=== PATIENT | female | born 1970 | race Caucasian/White ===

== ENCOUNTER 2016-12-28 17:14 | Observation (INO) | payer OTHER ==
[~2016-12-28] VITALS: Ht 172.7 cm; Wt 63.8 kg
[2016-12-28] MEDS ORDERED: SODIUM CHLORIDE 0.9% 1000ML 1,000 ML IV STA (17:19)
--- NOTE | 2016-12-28 17:34 | EMERGENCY ROOM VISIT NOTE ---
History Report prepared by Staci: Dio Sanabria Under the Supervision of: Dr. Tavon Flowers M.D. First contact with patient: 17:19 Chief Complaint: OVERDOSE (INTENTIONAL) Stated Complaint: SLEEPING,GROGGY History of Present Illness The patient is a 46 year old female who presents to the Emergency Room with complaints of an intentional overdose that occurred prior to arrival. The patient's family think she overdosed on 16 and a 1/2, 400 mg Seroquel, and 30, 100 mg Seroquel. Currently, the patient is sleepy and groggy. Per the patient's family, the patient was coming from [place] to the [facility] to get admitted. The patient started acting crazy while in the car. They then were at a gas station, and the patient passed out and fell onto the ground. She has a resulting left knee abrasion from the fall. She was then brought here via ambulance. The patient's family states that the patient regularly takes 2 Seroquel to fall asleep at night, and would take another one if she can't fall asleep. The patient has been noted to think that somebody is coming after her. She would make stories up out of letters and rearrange the syllables to make up morbid stories about somebody trying to kill her. Source of History: family Onset: Prior to arrival Position: other (global-intentional) Symptom Intensity: 16.5 400 mg Seroquel, 30 100 mg Seroquel Associated Symptoms: + LOC Note: Associated symptoms: Sleepy and groggy. Acting crazy in car. Fell and has abrasion on left knee. Review of Systems See HPI for pertinent positives & negatives. A total of 10 systems reviewed and were otherwise negative. Past Medical & Surgical Medical Problems: (1) Medical history unknown (2) Pulmonary embolism Family History Unobtainable Social History Smoking Status: Current Every Day Smoker Alcohol Use: none, other (recovered alcoholic-no drinks in 5 years) Marital Status: in relationship Housing Status: lives with significant other Current/Historical Medications Scheduled Cyanocobalamin (Vitamin B-12), 1,000 MCG PO DAILY Fluoxetine Hcl (Prozac), 60 MG PO DAILY Fluticasone Furoate-Vilanterol (Breo Ellipta), 1 PUFFS PO DAILY Lorazepam (Ativan), 0.5 MG PO Q8 Pantoprazole (Protonix), 40 MG PO DAILY Quetiapine Fumarate (Seroquel), 400 MG PO HS Rivaroxaban (Xarelto), 20 MG PO DAILY Scheduled PRN Albuterol Hfa (Ventolin Hfa), 2 PUFFS INH Q6H PRN for PRN Trazodone Hcl (Trazodone), 50 MG PO HS PRN for Sleep Allergies Coded Allergies: Methylphenidate (Unverified Allergy, Unknown, RASH, SHOCK, 12/28/16) Metoclopramide (Unverified Allergy, Unknown, RASH, SHOCK, 12/28/16) Morphine (Unverified Allergy, Unknown, RASH, SHOCK, 12/28/16) Physical Exam Vital Signs Date Time Temp Pulse Resp B/P Pulse Ox O2 Delivery O2 Flow Rate FiO2 12/28/16 19:35 93 98 12/28/16 19:30 129/85 12/28/16 19:14 92 16 100 Room Air 12/28/16 19:00 127/87 12/28/16 18:44 91 97 12/28/16 18:39 92 96 12/28/16 18:38 107/73 12/28/16 18:34 96 96 12/28/16 18:29 98 99 12/28/16 18:24 95 96 12/28/16 18:19 94 97 12/28/16 18:14 94 98 12/28/16 18:09 94 98 12/28/16 18:04 96 98 12/28/16 18:02 132/90 12/28/16 17:48 105/77 12/28/16 17:44 91 97 12/28/16 17:41 97 Room Air 12/28/16 17:39 95 98 12/28/16 17:34 36.4 94 18 101/66 95 Room Air 12/28/16 17:34 92 96 12/28/16 17:33 101/66 12/28/16 17:29 94 95 12/28/16 17:24 93 96 12/28/16 17:20 95 12/28/16 17:19 94 95 Physical Exam GENERAL: Patient is a 46 year old female who is sonorous on exam HEAD: Normocephalic atraumatic EYES: Ocular movements intact pupils equal and react to light OROPHARYNX mucous membranes are moist no exudates present no erythema or edema present NECK: Supple no nuchal rigidity CHEST: Good equal expansion LUNGS: Clear and equal to auscultation CARDIAC: Normal S1 and S2 ABDOMEN: Soft nontender no guarding BACK: No CVA tenderness EXTREMITIES: No pain upon palpation normal muscle strength in all groups no clubbing cyanosis or edema NEURO: Patient is following commands is answering questions appropriately. Alert and oriented x3 Cranial Nerves 2-12 grossly intact Medical Decision & Procedures ER Provider Diagnostic Interpretation: Radiology results as stated below per my review and radiologist interpretation: CT HEAD WITHOUT CONTRAST (CT) CLINICAL HISTORY: Acute change in mental status COMPARISON STUDY: No previous studies for comparison. TECHNIQUE: Axial CT of the brain is performed from the vertex to the skull base. IV contrast was not administered for this examination. CT DOSE: 601.98 mGy.cm FINDINGS: No intra or extra-axial mass lesions are visualized. There is no CT evidence of acute cortical infarction. There is no evidence of midline shift. There is no acute hemorrhage. No calvarial fractures are visualized. There is minimal disconjugate ocular gaze There is no evidence of pathologic ventricular dilatation. There is no evidence of acute sinusitis IMPRESSION: No acute intracranial findings Electronically signed by: Elio Noble M.D. 12/28/2016 5:59 PM Dictated Date/Time: 12/28/2016 5:58 PM CHEST ONE VIEW PORTABLE CLINICAL HISTORY: Acute change in mental status COMPARISON STUDY: No previous studies for comparison. FINDINGS: The cardiac and mediastinal contours are normal. There is no evidence of focal pulmonary consolidation. There is no evidence of failure. No pleural effusions are visualized.[ IMPRESSION: No active disease in the chest. Electronically signed by: Elio Noble M.D. 12/28/2016 6:36 PM Dictated Date/Time: 12/28/2016 6:35 PM Laboratory Results Test 12/28/16 17:15 12/28/16 17:34 12/28/16 17:40 12/28/16 19:07 Prothrombin Time 10.2 SECONDS (9.0-12.0) Prothromb Time International Ratio 1.0 (0.9-1.1) Activated Partial Thromboplast Time 24.3 SECONDS (21.0-31.0) Partial Thromboplastin Ratio 0.9 Total Bilirubin 0.9 mg/dl (0.2-1) Direct Bilirubin mg/dl (0-0.2) Alanine Aminotransferase (ALT/SGPT) 13 U/L (12-78) Alkaline Phosphatase 84 U/L (45-117) Total Protein 6.9 gm/dl (6.4-8.2) Albumin 3.7 gm/dl (3.4-5.0) Lipase 88 U/L (73-393) Chemistry Specimen Hemolysis Salicylates Level 4.7 mg/dl (2.8-20) Acetaminophen Level < 2 ug/ml (10-30) Ethyl Alcohol mg/dL < 3.0 mg/dl (0-3) Bedside Glucose 113 mg/dl (70-90) Urine Color DK YELLOW Urine Appearance CLOUDY (CLEAR) Urine pH 6.0 (4.5-7.5) Urine Specific [place] 1.038 (1.000-1.030) Urine Protein 2+ (NEG) Urine Glucose (UA) NEG (NEG) Urine Ketones TRACE (NEG) Urine Occult Blood TRACE (NEG) Urine Nitrite POS (NEG) Urine Bilirubin NEG (NEG) Urine Urobilinogen NEG (NEG) Urine Leukocyte Esterase TRACE (NEG) Urine WBC (Auto) 1-5 /hpf (0-5) Urine RBC (Auto) 5-10 /hpf (0-4) Urine Hyaline Casts (Auto) 10-30 /lpf (0-5) Urine Epithelial Cells (Auto) >30 /lpf (0-5) Urine Bacteria (Auto) 4+ (NEG) Urine Renal Epithelial Cells /lpf (0-5) Urine Crystals CALCIUM OXALATE (NONE Urine Opiates Screen NEG (NEG) Urine Methadone, Qualitative NEG (NEG) Urine Barbiturates NEG (NEG) Urine Phencyclidine (PCP) Level NEG (NEG) Ur Amphetamine/Methamphetamine POS (NEG) MDMA (Ecstasy) Screen NEG (NEG) Urine Benzodiazepines Screen POS (NEG) Urine Cocaine Metabolite NEG (NEG) Urine Marijuana (THC) NEG (NEG) Magnesium Level 1.9 mg/dl (1.8-2.4) Aspartate Amino Transf (AST/SGOT) 7 U/L (15-37) Total Creatine Kinase 38 U/L (26-192) Labs reviewed by ED physician. Medications Administered Medications (Trade) Dose Ordered Sig/Jessica Route Start Time Stop Time Status Last Admin Dose Admin Sodium Chloride (Nss 1000ml) 1,000 ml @ 999 mls/hr Q1H1M STAT IV 5/5/17 17:19 12/28/16 18:19 DC 12/28/16 17:30 999 MLS/HR Naloxone HCl (Narcan Inj) 0.2 mg NOW STAT IV 12/28/16 17:20 12/28/16 17:21 DC 12/28/16 18:16 0.2 MG Ceftriaxone Sodium (Rocephin Inj) 1 gm NOW STAT IV 12/28/16 18:18 12/28/16 18:19 DC 12/28/16 18:21 1 GM Magnesium Sulfate (Magnesium Sulfate) 1 gm NOW STAT IV 12/28/16 19:27 12/28/16 19:28 DC 12/28/16 19:40 1 GM ECG Indication: other (overdose) Rate (beats per minute): 94 Rhythm: normal sinus Findings: no acute ischemic change, prolonged QT, no ectopy Change: Second ECG: normal sinus rhythm with a rate of 90 bpm. Prolonged QT. QTC is 44. ED Course 1714: Past medical records reviewed. The patient was evaluated in room A1. A complete history and physical examination was performed. 171: Ordered NSS 1000 ml @ 999 mls/hr IV. 0: Ordered Narcan Inj 0.2 mg IV. 0: I reevaluated the patient and Narcan was given to the patient with no response. 1817: Ordered Rocephin Inj 1 gm IV. 1907: I discussed the patient with Dr. Cole - Isaura student development advisor - he will evaluate the patient for further treatment. 1911: I reevaluated the patient and she is resting comfortably. The patient's family verbally expressed understanding and agreement of the treatment plan. The patient will be evaluated for further treatment. Medical Decision Differential diagnosis: Etiologies such as metabolic, infection, hypoglycemia, electrolyte abnormalities , cardiac sources, intracerebral event, toxicologic, neurologic, as well as others were entertained. This is a 46 rolled female who presents emergency department complaining of altered mental status. The patient's family is concerned that she took an overdose of her Seroquel. Upon arrival to the emergency department the patient is somnolent however she is managing her airway. She wakes with painful stimuli however falls immediately back to sleep. Family is unsure if the patient also took a large amount of Ativan as well. I did discuss the case with poison control. I also discussed the case with the [facility] service who agreed to admit the patient. Patient family were in agreement with the treatment plan. Consults Time Called: 1901 Consulting Physician: Dr. Douglas Delarosa student development advisor Returned Call: 1907 I discussed the patient with Dr. Douglas Delarosa student development advisor - he will evaluate the patient for further treatment. Impression Primary Impression: Polysubstance overdose Scribe Attestation The scribe's documentation has been prepared under my direction and personally reviewed by me in its entirety. I confirm that the note above accurately reflects all work, treatment, procedures, and medical decision making performed by me. Departure Information Dispostion Being Evaluated By Hospitalist Referrals No Doctor, Assigned (PCP) Patient Instructions My [facility]
[2016-12-28 17:44] LABS: BASO % 0.2 %; BASO ABS # 0.02 K/uL (0-0.2); COMPLETE YES; EOS % 1.3 %; HEMATOCRIT 41.9 % (37-47); IG% 0.2 %; LYMPH % 26.9 %; LYMPH ABS # 2.83 K/uL (1.2-3.4); MEAN CELL VOLUME 89.5 fL (80-100); MEAN CORPUSCULAR HEMOGLOBIN 30.8 pg (25-34); MEAN CORPUSCULAR HGB CONC 34.4 g/dl (32-36); MEAN PLATELET VOLUME 8.8 fL (7.4-10.4); NEUT % 66.4 %; PLATELET COUNT 416 K/uL (130-400); RED BLOOD COUNT 4.68 M/uL (4.2-5.4); WHITE BLOOD COUNT 10.51 K/uL (4.8-10.8)
[2016-12-28] MEDS ORDERED: FLUO20CA37 PO (17:46)
[2016-12-28] MEDS ORDERED: QUET1TAB34 PO (17:46)
[2016-12-28] MEDS ORDERED: LORA-741 PO (17:46)
[2016-12-28] MEDS ORDERED: TRAZ50TA35 PO (17:46)
[2016-12-28] MEDS ORDERED: VNTHFA/IN INH (17:46)
[2016-12-28] MEDS ORDERED: FLUT1INH PO (17:46)
[2016-12-28] MEDS ORDERED: PANT40TA PO (17:46)
[2016-12-28] MEDS ORDERED: RIVA1TAB4 PO (17:46)
[2016-12-28] MEDS ORDERED: CYAN10005 PO (17:46)
[2016-12-28 17:53] LABS: PARTIAL THROMBOPLASTIN RATIO 0.9; PROTHROMBIN TIME (PATIENT) 10.2 SECONDS (9.0-12.0)
[2016-12-28 17:57] LABS: URINE APPEARANCE CLOUDY (CLEAR); URINE COLOR DK YELLOW; URINE EPITHELIAL CELL AUTO >30 /lpf (0-5); URINE NITRITE POS (NEG); URINE SPECIFIC GRAVITY 1.038 (1.000-1.030); UROBILINOGEN NEG (NEG)
[2016-12-28 18:01] LABS: MANUAL MICROSCOPIC REQUIRED? NO; REVIEW REQ? YES; URINE BILIRUBIN NEG (NEG)
--- NOTE | 2016-12-28 18:01 | DIAGNOSTIC IMAGING REPORT ---
CT HEAD WITHOUT CONTRAST (CT) CLINICAL HISTORY: Acute change in mental status COMPARISON STUDY: No previous studies for comparison. TECHNIQUE: Axial CT of the brain is performed from the vertex to the skull base. IV contrast was not administered for this examination. CT DOSE: 601.98 mGy.cm FINDINGS: No intra or extra-axial mass lesions are visualized. There is no CT evidence of acute cortical infarction. There is no evidence of midline shift. There is no acute hemorrhage. No calvarial fractures are visualized. There is minimal disconjugate ocular gaze There is no evidence of pathologic ventricular dilatation. There is no evidence of acute sinusitis IMPRESSION: No acute intracranial findings Electronically signed by: Elio Noble M.D. 12/28/2016 5:59 PM Dictated Date/Time: 12/28/2016 5:58 PM
[2016-12-28] MEDS: NALOXONE HCL 0.4 MG/1 ML VIAL/CARP IV STA ×2 (18:13→18:16)
[2016-12-28] MEDS ORDERED: CEFTRIAXONE SOD INJ 1 GM ADDVIAL IV STA (18:18)
[2016-12-28 18:23] LABS: BENZODIAZEPINE, URINE POS (NEG); COCAINE,URINE NEG (NEG); PHENCYCLIDINE, URINE NEG (NEG)
--- NOTE | 2016-12-28 18:37 | DIAGNOSTIC IMAGING REPORT ---
CHEST ONE VIEW PORTABLE CLINICAL HISTORY: Acute change in mental status COMPARISON STUDY: No previous studies for comparison. FINDINGS: The cardiac and mediastinal contours are normal. There is no evidence of focal pulmonary consolidation. There is no evidence of failure. No pleural effusions are visualized.[ IMPRESSION: No active disease in the chest. Electronically signed by: Elio Noble M.D. 12/28/2016 6:36 PM Dictated Date/Time: 12/28/2016 6:35 PM
[2016-12-28 18:43] LABS: ACETAMINOPHEN < 2 ug/ml (10-30)
[2016-12-28 18:56] LABS: ALKALINE PHOSPHATASE 84 U/L (45-117); ALT/SGPT 13 U/L (12-78); BLOOD UREA NITROGEN 10 mg/dl (7-18); BUN/CREATININE RATIO 13.2 (10-20); CALCIUM 9.3 mg/dl (8.5-10.1); CARBON DIOXIDE 26 mmol/L (21-32); CHLORIDE 105 mmol/L (98-107); CREATININE 0.74 mg/dl (0.60-1.20); GLUCOSE 117 mg/dl (70-99); SODIUM 139 mmol/L (136-145)
[2016-12-28] MEDS ORDERED: MAGNESIUM SULFATE 1GM / D5W 1 GM BAG IV STA (19:27)
[2016-12-28 19:33] LABS: POTASSIUM 3.3 mmol/L (3.5-5.1)
[2016-12-28 19:41] LABS: MAGNESIUM 1.9 mg/dl (1.8-2.4)
[2016-12-28] MEDS ORDERED: IV FLUIDS COMPLETED PRN (20:00)
[2016-12-28] MEDS ORDERED: POTASSIUM CHLORIDE 10 MEQ TABCR PO STA (20:25)
[2016-12-28] MEDS ORDERED: IBUPROFEN 200 MG TAB PO PRN (20:30)
[2016-12-28] MEDS ORDERED: ONDANSETRON INJ 2 MG/ML 2 ML VIAL IV PRN (20:30)
[2016-12-28] MEDS ORDERED: KETOROLAC TROMETHAMINE 30 MG/ML VIAL IV PRN (20:30)
[2016-12-28] MEDS ORDERED: ACETAMINOPHEN 325 MG TAB PO PRN (20:30)
[2016-12-28] MEDS ORDERED: NITROGLYCERIN 0.4 MG SL PER TAB CHARGE SL PRN (20:30)
[2016-12-28 20:35] VITALS: BP 106/70; PULSE 87; TEMP 36.6; O2SAT 98; Ht 172.7 cm; Wt 63.8 kg
[2016-12-28] MEDS ORDERED: NSS + 20MEQ KCL 1000ML 1,000 ML IV ONE (21:15)
[2016-12-28 23:00] VITALS: O2SAT 98
[2016-12-28] MEDS: POTASSIUM CHLR 10 MEQ / WTR 10 MEQ in PREMIXED WATER 100 ML IV SCH (23:28)
[2016-12-29] VITALS (10 sets, daily range): BP systolic 89–157; BP diastolic 58–102; PULSE 77–86; TEMP 36.3–36.9; O2SAT 96–98
[2016-12-29] MEDS: POTASSIUM CHLR 10 MEQ / WTR 10 MEQ in PREMIXED WATER 100 ML IV SCH (01:00)
--- NOTE | 2016-12-29 01:16 | HISTORY & PHYSICAL EXAMINATION ---
DATE OF ADMISSION: 12/28/2016 PRIMARY CARE DOCTOR: Dr. Pedro from [place], [place] History was obtained from patient and patient's family, Patient is not a reliable historian 2 to disoriented state. Patient is a resident of [facility]. CHIEF COMPLAINT: Falling, groggy status as per family. HISTORY OF PRESENT ILLNESS: Medical history is significant for mood disorder with paranoid features as per family, history of recurrent DVT on anticoagulation, ongoing tobacco abuse, anxiety, past hx opioid/benzo/ETOH abuse as per family. In the last few months, the patient's paranoia worsening. Family thinks px's psychiatrist does not understand the patient's situation. Patient was taken off [place] months ago because her "psychiatrist felt that [place] was an old medication." Patient was started on Prozac. Not working well as per family. On her last visit last week, Ativan resumed. In the last month, worsening paranoia and anxiety. Family is worried about patient. Yesterday, the patient brought by family to [facility] for possible psychiatric admission. Px was confined at facility last year. As per family, the patient was evaluated in the ER. possible UTI on work up. As per family, the psychiatric facility at [place] was not comfortable taking patient because of medical issues. Rx for UTI has not been started at home. This morning, the patient's family intended to bring patient to the [facility] facility in [place] for possible psychiatric admission. Prior to leaving her home, patient was noted to be very anxious by her boyfriend. She had run out of recent rx of Ativan tabs from her psychiatrist. Px took a few tablets of Seroquel. Upon stopping at the gas station, the patient was noted to be groggy and falling while walking. No chest pain, no shortness of breath. Increasing disorientation was noted. Denies abd pain, dysuria sx. At the ER, px Ceftriaxone for UTI. MEDICAL HISTORY: As above. SURGERIES: She has had cholecystectomy, vascular procedures, hysterectomy and back surgery. HOME MEDICATIONS: Include; Prozac, Ventolin, vitamin B12, Ellipta, Ativan, Protonix, Seroquel, Xarelto and trazodone. ALLERGIES: TO METHYLPHENIDATE, REGLAN AND MORPHINE. FAMILY HISTORY: COPD. PERSONAL AND SOCIAL HISTORY: Half a pack daily. History of past alcohol abuse, disabled. REVIEW OF SYSTEMS: Could not be reliably obtained. PHYSICAL EXAMINATION: VITAL SIGNS: Blood pressure was noted to be 129/85, pulse rate 93, respiratory rate 18, temperature 36.4 and sats 98 on room air. GENERAL: Noted to be disoriented and lethargic. No respiratory distress. SKIN: Normal color. HEENT: [place] palpebral conjunctivae. Dry mucosa. NECK: No JVD. Supple. LUNGS: Decreased effort HEART: Regular rate and rhythm. ABDOMEN: Some distention, nontender. EXTREMITIES: No edema. no tenderness NEUROLOGIC: Disorientation. lethargic LABORATORIES: Hemoglobin was 14.4, hematocrit 41, white cell count 10.5, platelets 400 Sodium 139, potassium 3.4 chloride 106 BUN 10, creatinine 0.7, glucose 117. CT head; no acute pathology. Chest x-ray showed no active disease. EKG as per my interpretation : rate-95, normal sinus rhythm, no ischemia. QTc was noted to be 480. UA nitrite positive, ketones ASSESSMENT: 1. Polysubstance overdose 2 to due to impulsive behavior/anxiety. Seroquel, ? benzodiazepine (px not suicidal as per family) 2. Mood disorder, with paranoid features suboptimal 3. Hypokalemia, clinical dehydration 4. recurrent deep vein thrombosis on Xarelto 5. ongoing tobacco abuse. 6. past ETOH abuse as per faUTI, no sepsis 7. past hx ETOH/benzo/opioid abuse as per family PLAN: Observation PCU need to monitor QTc prolongation as per ER MD conversation with Toxicology. Psych eval RE mood disorder/paranoia Hold home neuro-psychotropics for now until patient awake and evaluated by Psychiatry. Crucial to retrieve records from patient's psychiatrist from [place], [place] (Dr. Galicia). Replace potassium. IVF ff urine CS, IV Ceftriaxone for now. Nicotine patch Social service RE discharge planning. DVT prophylaxis, Xarelto. Full code. Patient's family requesting updates from providers. Mr. Mychal Weiner (boyfriend) at [phone]. Mr. Kishan Tran (father) at [phone]. [facility]
[2016-12-29] MEDS ORDERED: PNEUMOCOCCAL POLYSACCHARIDES 25 MCG/0.5 ML VIAL/SYR IM. ONE (08:00)
[2016-12-29] MEDS ORDERED: PNEUMOCOCCAL ADMINISTRATION CHARGE ONE (08:00)
[2016-12-29 08:21] LABS: BASO % 0.3 %; BASO ABS # 0.02 K/uL (0-0.2); COMPLETE YES; EOS % 1.4 %; IG% 0.3 %; LYMPH % 22.3 %; MEAN CELL VOLUME 90.5 fL (80-100); MEAN CORPUSCULAR HEMOGLOBIN 30.4 pg (25-34); MEAN CORPUSCULAR HGB CONC 33.6 g/dl (32-36); MONO % 5.2 %; NEUT % 70.5 %; PLATELET COUNT 333 K/uL (130-400); RED BLOOD COUNT 3.98 M/uL (4.2-5.4); WHITE BLOOD COUNT 7.63 K/uL (4.8-10.8)
[2016-12-29 09:00] LABS: BUN/CREATININE RATIO 12.6 (10-20); CALCIUM 8.6 mg/dl (8.5-10.1); CREATININE 0.64 mg/dl (0.60-1.20); POTASSIUM 4.3 mmol/L (3.5-5.1)
[2016-12-29] MEDS ORDERED: NICOTINE 14 MG/24 HR TDSY TD SCH (09:00)
[2016-12-29] MEDS ORDERED: PANTOprazole SOD 40 MG TAB PO SCH (09:00)
[2016-12-29] MEDS ORDERED: RIVAROXABAN 10 MG TAB PO SCH (09:00)
--- NOTE | 2016-12-29 10:42 | Psychiatric Consultation ---
Consultation Date of Consultation December 29, 2016. Identifying Data Hayley Easton is a 46-year-old female who currently lives in [place] with her boyfriend. The patient was brought to the ED by the family for medical clearance while in route to the [facility]. Information provided by the patient is considered to be unreliable but boyfriend's step-father was present and able to confirm much of her history. Chief Complaint "I want to get straightened out". History of Present Illness Hayley presented to [facility] day [employer], ED physician recommended inpatient admission but family reports she was declined due to ?history of PE. They sought care as she has been increasingly disorganized and paranoid. For the last few weeks she will for example misplace her cell phone (not realize it is next to her) and blame others for stealing it. She will also spend excessive amount of time reading and getting stuck on the structure of certain words believing that they have special messages for her. She reports difficulty sleeping as when hears a noise down stairs thinks someone is being shot or killed and for some reason the people that are out to get her are trying to frame her for this. Her thoughts are disorganized and appetite varies. She admits to using more Ativan recently due to the paranoia and took 400 mg Seroquel twice yesterday (am and noon). She reports that does have 100 mg tabs for daytime prn use but took 400 mg instead and then became increasingly somnolent. It's possible this has been a recurring issue as she has also been falling more. On review of PDMP Rx Aware database she filled 90 tabs of 0.5 mg Ativan on 12/[address] Galicia. She has a history of benzo dependence and at one point several years ago was using up to 16 mg a day. She has been sober for 5 years. Database does show rx of Oxycodone in late November and boyfriends step father confirms that she had a tooth pulled. She denies intentionally abusing Seroquel and clearly states that taking the extra medication was for anxiety, ie she had no intention to harm herself. Family at bedside confirms that she has not been suicidal and that she doesn't have any access to weapons. She states that she doesn't like trazodone so doesn 't take it and that she was only recently restarted on Prozac on 12/22 at the previous dose of 60 mg. They do not feel that her hospitalization at [facility] was in anyway helpful but do note a history of positive response to lithium when hospitalized in August of 2015 for bipolar disorder. They state she was taken off of it by her regular psychiatrist as an "old medication". Past Psychiatric History Current OP Treatment: psychiatrist (Dr. Galicia, [place] (20 min from home)) Prior Psych Hospitalizations: other ([facility] 09/10, [facility] 12/09) Access to a Gun: No Suicide Attempts: No Past Medication Trials patient unable to complete full list at this time, response to lithium as above , she initially denied being on suboxone in 2015 when asked about it from the [place] database, again family confirmed she was prescribed it. Past Medical/Surgical History History of Concussion/Seizure: No (1) Pulmonary embolism 6 months ago, on anticoagulation Allergies Allergies: Coded Allergies: Methylphenidate (Unverified Allergy, Unknown, RASH, SHOCK, 12/28/16) Metoclopramide (Unverified Allergy, Unknown, RASH, SHOCK, 12/28/16) Morphine (Unverified Allergy, Unknown, RASH, SHOCK, 12/28/16) Home Medications Scheduled Cyanocobalamin (Vitamin B-12), 1,000 MCG PO DAILY Fluoxetine Hcl (Prozac), 60 MG PO DAILY Fluticasone Furoate-Vilanterol (Breo Ellipta), 1 PUFFS PO DAILY Lorazepam (Ativan), 0.5 MG PO Q8 Pantoprazole (Protonix), 40 MG PO DAILY Quetiapine Fumarate (Seroquel), 400 MG PO HS Rivaroxaban (Xarelto), 20 MG PO DAILY Scheduled PRN Albuterol Hfa (Ventolin Hfa), 2 PUFFS INH Q6H PRN for PRN Trazodone Hcl (Trazodone), 50 MG PO HS PRN for Sleep Family History History of Suicide: No History of Substance Abuse: No Psychiatric History: No Alcohol Use Alcohol Use In Past 12 Months: No Smoking Use Smoking Status: Current Every Day Smoker Substance History hx of opiate dependence, denies in past year and a half, tox screen negative for opiates but positive for amphetamines, patient denies use and no rx on database but could be obtaining illegally Personal History Education: graduated from high school Work History: disability Relationship History: other (living with male partner) Children: 2 (1 adopted, 1 daughter lives with daughter's father) Spiritual Affiliation: Cheondoism Legal History: other (denied) Psychological Trauma History: Other (denied ) Review of Systems Psych: denies symptoms other than stated above Constitutional: denied Cardiovascular: denied GI: nausea Neurologic: headaches, dizziness Remainder of 10 body systems also reviewed and denied other than noted above. Examination Vital Signs Vital Signs Past 12 Hours Date Time Temp Pulse Resp B/P Pulse Ox O2 Delivery O2 Flow Rate FiO2 12/29/16 08:18 36.4 81 18 110/72 98 Room Air 12/29/16 08:00 Room Air 12/29/16 05:23 36.3 82 18 111/79 98 Room Air 12/29/16 04:03 98 Room Air 12/29/16 00:05 36.3 80 18 89/58 98 Room Air 12/29/16 00:00 Room Air 12/28/16 23:00 98 Room Air Laboratory Results Last 24 Hours Test 12/28/16 17:15 12/28/16 17:34 12/28/16 17:40 12/28/16 19:07 White Blood Count 10.51 K/uL Red Blood Count 4.68 M/uL Hemoglobin 14.4 g/dL Hematocrit 41.9 % Mean Corpuscular Volume 89.5 fL Mean Corpuscular Hemoglobin 30.8 pg Mean Corpuscular Hemoglobin Concent 34.4 g/dl Platelet Count 416 K/uL Mean Platelet Volume 8.8 fL Neutrophils (%) (Auto) 66.4 % Lymphocytes (%) (Auto) 26.9 % Monocytes (%) (Auto) 5.0 % Eosinophils (%) (Auto) 1.3 % Basophils (%) (Auto) 0.2 % Neutrophils # (Auto) 6.97 K/uL Lymphocytes # (Auto) 2.83 K/uL Monocytes # (Auto) 0.53 K/uL Eosinophils # (Auto) 0.14 K/uL Basophils # (Auto) 0.02 K/uL RDW Standard Deviation 42.8 fL RDW Coefficient of Variation 13.1 % Immature Granulocyte % (Auto) 0.2 % Immature Granulocyte # (Auto) 0.02 K/uL Prothrombin Time 10.2 SECONDS Prothromb Time International Ratio 1.0 Activated Partial Thromboplast Time 24.3 SECONDS Partial Thromboplastin Ratio 0.9 Sodium Level 139 mmol/L Potassium Level mmol/L 3.3 mmol/L Chloride Level 105 mmol/L Carbon Dioxide Level 26 mmol/L Anion Gap 8.0 mmol/L Blood Urea Nitrogen 10 mg/dl Creatinine 0.74 mg/dl Est Creatinine Clear Calc Drug Dose 95.7 ml/min Estimated GFR () 112.6 Estimated GFR (Non- 97.2 BUN/Creatinine Ratio 13.2 Random Glucose 117 mg/dl Calcium Level 9.3 mg/dl Magnesium Level mg/dl 1.9 mg/dl Total Bilirubin 0.9 mg/dl Direct Bilirubin mg/dl Aspartate Amino Transf (AST/SGOT) U/L 7 U/L Alanine Aminotransferase (ALT/SGPT) 13 U/L Alkaline Phosphatase 84 U/L Total Creatine Kinase U/L 38 U/L Total Protein 6.9 gm/dl Albumin 3.7 gm/dl Lipase 88 U/L Chemistry Specimen Hemolysis Salicylates Level 4.7 mg/dl Acetaminophen Level < 2 ug/ml Ethyl Alcohol mg/dL < 3.0 mg/dl Bedside Glucose 113 mg/dl Urine Color DK YELLOW Urine Appearance CLOUDY Urine pH 6.0 Urine Specific [place] 1.038 Urine Protein 2+ Urine Glucose (UA) NEG Urine Ketones TRACE Urine Occult Blood TRACE Urine Nitrite POS Urine Bilirubin NEG Urine Urobilinogen NEG Urine Leukocyte Esterase TRACE Urine WBC (Auto) 1-5 /hpf Urine RBC (Auto) 5-10 /hpf Urine Hyaline Casts (Auto) 10-30 /lpf Urine Epithelial Cells (Auto) >30 /lpf Urine Bacteria (Auto) 4+ Urine Renal Epithelial Cells /lpf Urine Crystals CALCIUM OXALATE Urine Opiates Screen NEG Urine Methadone, Qualitative NEG Urine Barbiturates NEG Urine Phencyclidine (PCP) Level NEG Ur Amphetamine/Methamphetamine POS MDMA (Ecstasy) Screen NEG Urine Benzodiazepines Screen POS Urine Cocaine Metabolite NEG Urine Marijuana (THC) NEG Test 12/29/16 07:25 White Blood Count 7.63 K/uL Red Blood Count 3.98 M/uL Hemoglobin 12.1 g/dL Hematocrit 36.0 % Mean Corpuscular Volume 90.5 fL Mean Corpuscular Hemoglobin 30.4 pg Mean Corpuscular Hemoglobin Concent 33.6 g/dl Platelet Count 333 K/uL Mean Platelet Volume 9.0 fL Neutrophils (%) (Auto) 70.5 % Lymphocytes (%) (Auto) 22.3 % Monocytes (%) (Auto) 5.2 % Eosinophils (%) (Auto) 1.4 % Basophils (%) (Auto) 0.3 % Neutrophils # (Auto) 5.38 K/uL Lymphocytes # (Auto) 1.70 K/uL Monocytes # (Auto) 0.40 K/uL Eosinophils # (Auto) 0.11 K/uL Basophils # (Auto) 0.02 K/uL RDW Standard Deviation 43.9 fL RDW Coefficient of Variation 13.2 % Immature Granulocyte % (Auto) 0.3 % Immature Granulocyte # (Auto) 0.02 K/uL Sodium Level 145 mmol/L Potassium Level 4.3 mmol/L Chloride Level 114 mmol/L Carbon Dioxide Level 21 mmol/L Anion Gap 10.0 mmol/L Blood Urea Nitrogen 8 mg/dl Creatinine 0.64 mg/dl Est Creatinine Clear Calc Drug Dose 110.6 ml/min Estimated GFR () 124.0 Estimated GFR (Non- 107.0 BUN/Creatinine Ratio 12.6 Random Glucose 90 mg/dl Calcium Level 8.6 mg/dl Mental Examination During interview pt is: alert and oriented, cooperative Appearance: disheveled Eye contact is: fair Motor behavior is: no abnormal motor movements Speech: normal in rate, rhythm & volume Affect: depressed Mood is: anxious Thought process: other (disorganized) Thought content: paranoid, ideas of reference, persecution Suicidal thought are: denied Homicidal thoughts are: denied Hallucinations: denies auditory, denies visual Cognition: language grossly intact Intelligence estimated to be: below average Insight: poor Judgement: poor Impression / Recommendations Impression 46 yo female with a history of bipolar disorder presented following Seroquel OD with QTc prolongation, patient was misusing Seroquel to treat anxiety related to paranoia and there is no evidence that the ingestion was a suicide attempt. That said, she is disorganized and paranoia and has demonstrated inability to care for self. She has a history of substance use disorders and is possibly abusing, plus tested positive for amphetamines which could also contribute to presentation. Recommendations would d/c Prozac and consider restart lithium but this should be addressed in inpatient setting start Seroquel taper to 200 mg hs d/c trazodone would use Ativan prn withdrawal only inpatient psychiatric hospitalization is recommended. Patient is agreeable to 201. If would be unwilling to sign, would recommended proceeding with 302. She is expressing a strong preference for the [facility] as a smoker.
--- NOTE | 2016-12-29 11:34 | Progress Note ---
Internal Med Progress Note Date of Service: December 29, 2016. Provider Documentation: SUBJECTIVE: The patient was seen and examined Still has paranoia and thinks someone is going to do harm to her Wants to go to [facility] as an Inpatient OBJECTIVE: Vital Signs-as noted below Exam: General-No distress at rets Eyes-normal ENT-normal Neck-supple Lungs-Clear to ausucltate bilaterally Heart-Regular,no murmur appreciated Abdomen-Benign,no masses,bowel sound present Extremities-No edema Neuro-AAOx3 No focal neuro deficit Lab data as noted below. ASSESSMENT & PLAN: Polysubstance overdose-Seroquel H/O ETOH/benzo/opioid abuse as per family Has impulsive behavior/anxiety. Took more Seroquel and may have taken other substance Not Suicidal and or harmful to others Clinically much better QT interval improved -check again Appreciate Psychiatry evaluation-recommended inpatient care EKG -normalized Mood disorder, with paranoid features Thinks she needs inpatient care Had been on lithium before Hypokalemia, clinical dehydration Better IVF and monitor Recurrent deep vein thrombosis on Xarelto Continue Xarelto Ongoing tobacco abuse. Nicotine patch and counselling UTI Culture developing E Cloi Has been on Ceftriaxone Will start oral Cipro DVT prophylaxis, Xarelto. Full code. Patient's family requesting updates from providers. Mr. Mychal Weiner (boyfriend) at [phone]. Mr. Kishan Tran (father) at [phone]. DISPOSITION Discussed with the Psychiatrist Will facilitate transfer to [facility] Medically stable Vital Signs: Date Time Temp Pulse Resp B/P Pulse Ox O2 Delivery O2 Flow Rate FiO2 12/29/16 12:00 Room Air 12/29/16 11:20 36.4 85 16 121/79 97 Room Air 12/29/16 08:18 36.4 81 18 110/72 98 Room Air 12/29/16 08:00 Room Air 12/29/16 05:23 36.3 82 18 111/79 98 Room Air 12/29/16 04:03 98 Room Air 12/29/16 00:05 36.3 80 18 89/58 98 Room Air 12/29/16 00:00 Room Air 12/28/16 23:00 98 Room Air 12/28/16 20:35 36.6 87 106/70 98 Room Air 12/28/16 20:25 36.4 88 18 118/84 98 12/28/16 20:05 88 18 98 Room Air 12/28/16 20:00 118/84 12/28/16 19:35 93 98 12/28/16 19:30 129/85 12/28/16 19:14 92 16 100 Room Air 12/28/16 19:00 127/87 12/28/16 18:44 91 97 12/28/16 18:39 92 96 12/28/16 18:38 107/73 12/28/16 18:34 96 96 12/28/16 18:29 98 99 12/28/16 18:24 95 96 12/28/16 18:19 94 97 12/28/16 18:14 94 98 12/28/16 18:09 94 98 12/28/16 18:04 96 98 12/28/16 18:02 132/90 12/28/16 17:48 105/77 12/28/16 17:44 91 97 12/28/16 17:41 97 Room Air 12/28/16 17:39 95 98 12/28/16 17:34 36.4 94 18 101/66 95 Room Air 12/28/16 17:34 92 96 12/28/16 17:33 101/66 12/28/16 17:29 94 95 12/28/16 17:24 93 96 12/28/16 17:20 95 12/28/16 17:19 94 95 Lab Results: Results Past 24 Hours Test 12/28/16 17:15 12/28/16 17:34 12/28/16 17:40 12/28/16 19:07 Range/Units White Blood Count 10.51 4.8-10.8 K/uL Red Blood Count 4.68 4.2-5.4 M/uL Hemoglobin 14.4 12.0-16.0 g/dL Hematocrit 41.9 37-47 % Mean Corpuscular Volume 89.5 80-100 fL Mean Corpuscular Hemoglobin 30.8 25-34 pg Mean Corpuscular Hemoglobin Concent 34.4 32-36 g/dl Platelet Count 416 130-400 K/uL Mean Platelet Volume 8.8 7.4-10.4 fL Neutrophils (%) (Auto) 66.4 % Lymphocytes (%) (Auto) 26.9 % Monocytes (%) (Auto) 5.0 % Eosinophils (%) (Auto) 1.3 % Basophils (%) (Auto) 0.2 % Neutrophils # (Auto) 6.97 1.4-6.5 K/uL Lymphocytes # (Auto) 2.83 1.2-3.4 K/uL Monocytes # (Auto) 0.53 0.11-0.59 K/uL Eosinophils # (Auto) 0.14 0-0.5 K/uL Basophils # (Auto) 0.02 0-0.2 K/uL RDW Standard Deviation 42.8 36.4-46.3 fL RDW Coefficient of Variation 13.1 11.5-14.5 % Immature Granulocyte % (Auto) 0.2 % Immature Granulocyte # (Auto) 0.02 0.00-0.02 K/uL Prothrombin Time 10.2 9.0-12.0 SECONDS Prothromb Time International Ratio 1.0 0.9-1.1 Activated Partial Thromboplast Time 24.3 21.0-31.0 SECONDS Partial Thromboplastin Ratio 0.9 Sodium Level 139 136-145 mmol/L Potassium Level 3.3 3.5-5.1 mmol/L Chloride Level 105 98-107 mmol/L Carbon Dioxide Level 26 21-32 mmol/L Anion Gap 8.0 3-11 mmol/L Blood Urea Nitrogen 10 7-18 mg/dl Creatinine 0.74 0.60-1.20 mg/dl Est Creatinine Clear Calc Drug Dose 95.7 ml/min Estimated GFR () 112.6 Estimated GFR (Non- 97.2 BUN/Creatinine Ratio 13.2 10-20 Random Glucose 117 70-99 mg/dl Calcium Level 9.3 8.5-10.1 mg/dl Magnesium Level 1.9 1.8-2.4 mg/dl Total Bilirubin 0.9 0.2-1 mg/dl Direct Bilirubin 0-0.2 mg/dl Aspartate Amino Transf (AST/SGOT) 7 15-37 U/L Alanine Aminotransferase (ALT/SGPT) 13 12-78 U/L Alkaline Phosphatase 84 45-117 U/L Total Creatine Kinase 38 26-192 U/L Total Protein 6.9 6.4-8.2 gm/dl Albumin 3.7 3.4-5.0 gm/dl Lipase 88 73-393 U/L Chemistry Specimen Hemolysis Salicylates Level 4.7 2.8-20 mg/dl Acetaminophen Level < 2 10-30 ug/ml Ethyl Alcohol mg/dL < 3.0 0-3 mg/dl Bedside Glucose 113 70-90 mg/dl Urine Color DK YELLOW Urine Appearance CLOUDY CLEAR Urine pH 6.0 4.5-7.5 Urine Specific Edwards 1.038 1.000-1.030 Urine Protein 2+ NEG Urine Glucose (UA) NEG NEG Urine Ketones TRACE NEG Urine Occult Blood TRACE NEG Urine Nitrite POS NEG Urine Bilirubin NEG NEG Urine Urobilinogen NEG NEG Urine Leukocyte Esterase TRACE NEG Urine WBC (Auto) 1-5 0-5 /hpf Urine RBC (Auto) 5-10 0-4 /hpf Urine Hyaline Casts (Auto) 10-30 0-5 /lpf Urine Epithelial Cells (Auto) >30 0-5 /lpf Urine Bacteria (Auto) 4+ NEG Urine Renal Epithelial Cells 0-5 /lpf Urine Crystals CALCIUM OXALATE NONE PRSENT Urine Opiates Screen NEG NEG Urine Methadone, Qualitative NEG NEG Urine Barbiturates NEG NEG Urine Phencyclidine (PCP) Level NEG NEG Ur Amphetamine/Methamphetamine POS NEG MDMA (Ecstasy) Screen NEG NEG Urine Benzodiazepines Screen POS NEG Urine Cocaine Metabolite NEG NEG Urine Marijuana (THC) NEG NEG Test 12/29/16 07:25 Range/Units White Blood Count 7.63 4.8-10.8 K/uL Red Blood Count 3.98 4.2-5.4 M/uL Hemoglobin 12.1 12.0-16.0 g/dL Hematocrit 36.0 37-47 % Mean Corpuscular Volume 90.5 80-100 fL Mean Corpuscular Hemoglobin 30.4 25-34 pg Mean Corpuscular Hemoglobin Concent 33.6 32-36 g/dl Platelet Count 333 130-400 K/uL Mean Platelet Volume 9.0 7.4-10.4 fL Neutrophils (%) (Auto) 70.5 % Lymphocytes (%) (Auto) 22.3 % Monocytes (%) (Auto) 5.2 % Eosinophils (%) (Auto) 1.4 % Basophils (%) (Auto) 0.3 % Neutrophils # (Auto) 5.38 1.4-6.5 K/uL Lymphocytes # (Auto) 1.70 1.2-3.4 K/uL Monocytes # (Auto) 0.40 0.11-0.59 K/uL Eosinophils # (Auto) 0.11 0-0.5 K/uL Basophils # (Auto) 0.02 0-0.2 K/uL RDW Standard Deviation 43.9 36.4-46.3 fL RDW Coefficient of Variation 13.2 11.5-14.5 % Immature Granulocyte % (Auto) 0.3 % Immature Granulocyte # (Auto) 0.02 0.00-0.02 K/uL Sodium Level 145 136-145 mmol/L Potassium Level 4.3 3.5-5.1 mmol/L Chloride Level 114 98-107 mmol/L Carbon Dioxide Level 21 21-32 mmol/L Anion Gap 10.0 3-11 mmol/L Blood Urea Nitrogen 8 7-18 mg/dl Creatinine 0.64 0.60-1.20 mg/dl Est Creatinine Clear Calc Drug Dose 110.6 ml/min Estimated GFR () 124.0 Estimated GFR (Non- 107.0 BUN/Creatinine Ratio 12.6 10-20 Random Glucose 90 70-99 mg/dl Calcium Level 8.6 8.5-10.1 mg/dl Microbiology Results 12/28/16 Urine Culture - Preliminary, Resulted Escherichia Coli
[2016-12-29] MEDS ORDERED: CIPROFLOXACIN 500 MG TAB PO STA (14:17)
[2016-12-29] MEDS: GABAPENTIN 800 MG TAB PO SCH ×2 (17:19→21:11)
[2016-12-29] MEDS: LORAZEPAM 2 MG/ML 1 ML VIAL IV PRN ×2 (17:20→21:14)
[2016-12-29] MEDS ORDERED: CEFTRIAXONE SOD INJ 1 GM in DEXTROSE 5% ADD-VANTAGE 50ML 50 ML IV SCH (19:00)
[2016-12-29] MEDS ORDERED: CIPROFLOXACIN 500 MG TAB PO SCH (21:00)
[2016-12-29] MEDS ORDERED: QUETIAPINE FUMARATE 200 MG TABCR PO SCH (21:00)
[2016-12-29] MEDS ORDERED: SRQSR200 PO (23:24)
[2016-12-29] MEDS ORDERED: CPR500 PO (23:24)
[2016-12-30 00:27] VITALS: BP 144/93; PULSE 77; TEMP 36.4; O2SAT 96
--- NOTE | 2016-12-30 01:33 | DISCHARGE SUMMARY ---
PRIMARY CARE DOCTOR: Dr. Pedro DIAGNOSES ON ADMISSION: 1. Polysubstance overdose (Seroquel, Ativan) 2. Mood disorder with paranoia features 3. hypokalemia 4. recurrent deep venous thrombosis on Xarelto 5. ongoing tobacco abuse 6. past hx alcohol/benzodiazepines/opiate abuse as per family 7. urinary tract infection no sepsis. DIAGNOSES ON DISCHARGE: Same. 1. Polysubstance overdose (Seroquel, Ativan) 2. Bipolar DSO 3. hypokalemia, resolved 4. recurrent deep venous thrombosis on Xarelto 5. ongoing tobacco abuse 6. past hx alcohol/benzodiazepines/opiate abuse as per family 7. E. coli urinary tract infection (sensitivity pending) MEDICATIONS ON DISCHARE: Cipro 500 mg p.o. twice a day for the next 3 days (12/30/2016 to 01/01/2017) Seroquel 200 mg p.o. nightly to be tapered off as per [facility] Psychiatry recommendation Xarelto 20 mg daily albuterol MDI p.r.n. cyanocobalamin daily Breo Ellipta one puff twice a day Protonix 40 mg daily. HOSPITAL COURSE: Briefly, see H and P dictated by undersigned on admission. Patient was brought to the hospital because of disorientation and falling. Patient family travelled from home to [facility] to have patient evaluated at the [facility] for possible inpatient psychiatric admission because of worsening paranoia/mood issues the last few months. Patient took a few Seroquel tabs before leaving home for [facility] due to anxiety. She had used up recent Ativan prescription from her psychiatrist. Noted to be disoriented and falling by family. Px brought to [facility] for evaluation. Potassium was noted to be 3.3. Replacement given. UA; nitrite positive. E. coli on initial growth. Patient was given IV ceftriaxone, later switched to Ciprofloxacin PO. Px evaluated by psychiatry inpatient once px more awake. Impression was Bipolar DSO/paranoia/substance abuse. Recommendations as follows : Inpatient psychiatric hospitalization. Discontinuing home Prozac and Trazodone. Start Seroquel taper to 200 mg nightly. Restarting [place] - in the inpatient setting. Discontinue home Ativan, use prn only. Patient was agreeable to 201. Patient was accepted to transfer to psychiatric facility at [facility]. PCP (Dr. Pedro) and psychiatrist (Dr. Galicia) upon discharge from [facility]. Total time to dictate this discharge summary was 10 minutes. [facility]
[2016-12-31 08:33] LABS: HYDROXYETHYLFLURAZEPAM CONF NEGATIVE NG/ML (CUTOFF=50); HYDROXYMIDAZOLAM NEGATIVE NG/ML (CUTOFF=50); HYDROXYTRIAZOLAM CONF NEGATIVE NG/ML (CUTOFF=50); TEMAZEPAM CONF NEGATIVE NG/ML (CUTOFF=50)
== END 2016-12-30 01:00 ==
LOC: ENRESERVDT → ENRESERVTM → C.EDA 17:17 → C.2T 19:35
PROVIDERS: ADMIT Internal Medicine; ATTEND Internal Medicine
DX: T43.591A Poisoning by other antipsychotics and neuroleptics, accidental (unintentional), initial encounter (principal); T42.4X1A Poisoning by benzodiazepines, accidental (unintentional), initial encounter; F31.9 Bipolar disorder, unspecified; E87.6 Hypokalemia; N39.0 Urinary tract infection, site not specified; Z20.01 Contact with and (suspected) exposure to intestinal infectious diseases due to Escherichia coli (E. coli); F17.200 Nicotine dependence, unspecified, uncomplicated; Z86.718 Personal history of other venous thrombosis and embolism; Z86.711 Personal history of pulmonary embolism; Z88.5 Allergy status to narcotic agent

== ENCOUNTER 2017-01-25 19:04 | Emergency (ER) | payer OTHER ==
[~2017-01-25] VITALS: Ht 172.7 cm; Wt 69.7 kg
[~2017-01-25 19:04] MED LIST: CPR500 PO; CYAN10005 PO; FLUT1INH PO; PANT40TA PO; RIVA1TAB4 PO; SRQSR200 PO; VNTHFA/IN INH
[2017-01-25 19:09] VITALS: TEMP 36.8; Ht 172.7 cm; Wt 69.7 kg
[2017-01-25] MEDS ORDERED: SODIUM CHLORIDE 0.9% 1000ML 1,000 ML IV STA (19:34)
[2017-01-25] MEDS ORDERED: DiphenhydrAMINE HCL 50 MG/ML VIAL IV STA (19:41)
[2017-01-25 19:45] LABS: URINE APPEARANCE CLEAR (CLEAR); URINE BILIRUBIN NEG (NEG); URINE COLOR YELLOW; URINE NITRITE NEG (NEG); URINE PH 7.5 (4.5-7.5); URINE SPECIFIC GRAVITY 1.008 (1.000-1.030); UROBILINOGEN NEG (NEG)
[2017-01-25 19:48] LABS: MANUAL MICROSCOPIC REQUIRED? NO; REVIEW REQ? NO
[2017-01-25 20:38] LABS: ALKALINE PHOSPHATASE 90 U/L (45-117); ALT/SGPT 23 U/L (12-78); AST/SGOT 16 U/L (15-37)
[2017-01-25] MEDS ORDERED: HYDROmorphone INJ 1 MG/ML SYR IV STA (21:07)
--- NOTE | 2017-01-25 21:08 | DIAGNOSTIC IMAGING REPORT ---
CT SCAN OF THE ABDOMEN AND PELVIS WITHOUT IV CONTRAST CLINICAL HISTORY: Left flank pain. COMPARISON STUDY: No priors. TECHNIQUE: CT scan of the abdomen and pelvis is performed from the lung bases to the proximal femora. Images are reviewed in the axial, sagittal, and coronal planes. IV contrast was not administered for this examination as per the referring clinician. Automated dose control exposure was utilized. CT DOSE: 669.34 mGy.cm FINDINGS: Lung bases: The heart is normal in size and without pericardial effusion. There is bibasilar atelectasis. The lung bases are otherwise clear. Liver: The unenhanced liver is normal in size, contour, and attenuation. There is mild central intrahepatic biliary ductal dilatation. Gallbladder: Surgically absent noting clips in the gallbladder fossa. Spleen: Normal in size and attenuation. Small splenules are noted in the left upper quadrant. Pancreas: Unremarkable. Adrenal glands: Unremarkable. Kidneys: The unenhanced kidneys are normal in size and without hydronephrosis. There are least 4 nonobstructing left renal calculi at least 8 nonobstructing right renal calculi which measure up to 3 mm. No ureteral calculus is seen. There are small bilateral extrarenal pelvises. A 1.2 cm exophytic cyst arises from the left upper pole. There is a 9 mm slightly hyperdense nodule identified either within or adjacent to the right renal pelvis seen on axial image #189. Abdominal vasculature: The abdominal aorta is normal in course and caliber. Bowel: The small bowel and colon are normal in course and caliber. There are small duodenal diverticula. There is moderate colonic fecal retention. The appendix is well-visualized and normal. Peritoneum: There is no intraperitoneal free air or abdominal ascites. There is a small fat-containing umbilical hernia. Lymphadenopathy: None. Pelvic viscera: The bladder is normal in appearance. The uterus is surgically absent. No adnexal lesion is seen. Fluid in tube coils are present in the pelvis. Postoperative changes identified in the right groin. Skeletal structures: No lytic or blastic lesions are seen. There are postoperative changes from L4 -L5 spinal fusion. Arthritic change is noted in the hips. An 11 mm bone island is noted in the left ilium. IMPRESSION: 1. There are no acute infectious or inflammatory findings in the abdomen or pelvis. 2. There are numerous small bilateral nonobstructing renal calculi. No ureteral stone is seen and there is no hydronephrosis. 3. There is a 9 mm slightly hyperdense nodule identified either within or adjacent to the right renal pelvis (a location within the renal pelvis is favored). The appearance is concerning for a urothelial lesion. Nonemergent/outpatient follow-up with urology is recommended for further assessment. 4. Moderate constipation. Electronically signed by: Jesús Jeffery M.D. 01/25/2017 9:07 PM Dictated Date/Time: 01/25/2017 8:58 PM
[2017-01-25] MEDS ORDERED: HYDROmorphone INJ 0.5 MG/0.5 ML SYR ONE (21:10)
[2017-01-25] MEDS ORDERED: PROCHLORPERAZINE 5 MG/ML 2 ML VIAL IV STA (21:27)
[2017-01-25] MEDS ORDERED: ADVIN10050 INH (21:53)
[2017-01-25] MEDS ORDERED: QUET1TAB34 PO (21:53)
[2017-01-25] MEDS ORDERED: QUET400T PO (21:53)
[2017-01-25] MEDS ORDERED: CLON1TAB3 PO (21:53)
[2017-01-25 22:00] VITALS: BP 127/88; PULSE 81; O2SAT 95
--- NOTE | 2017-01-26 01:04 | EMERGENCY ROOM VISIT NOTE ---
History Report prepared by Staci: Shyann Brown Under the Supervision of: Dr. Kanu Hooper M.D. First contact with patient: 19:24 Chief Complaint: KIDNEY STONE Stated Complaint: SEVERE PAIN IN SIDE LEFT,CHEST AREA History of Present Illness The patient is a 46 year old female who presents to the Emergency Room with complaints of persistent left flank pain starting 2 nights ago. Last night the pain was worse and she was screaming in pain for 3 hours. She also had some vomiting this morning. Today at 1300 she passed a kidney stone. She is still having pain. She reports sore throat. She reports a low grade fever. She denies any chest pain or shortness of breath. She has had a hysterectomy. She has a history of DVT and PE and is currently on Xarelto. She has been taking her Xarelto. She had blood work today which showed that her ammonia was 60. She admits to having problems with alcohol in the past. Source of History: patient Onset: 2 nights ago Position: other (left flank) Symptom Intensity: severe Quality: other (pain) Timing: other (persistent) Associated Symptoms: + sorethroat, + vomiting, No chest pain Review of Systems See HPI for pertinent positives & negatives. A total of 10 systems reviewed and were otherwise negative. Past Medical & Surgical Medical Problems: (1) DVT (deep venous thrombosis) (2) Kidney disease (3) Medical history unknown (4) Pulmonary embolism (5) UTI (urinary tract infection) Surgical Problems: (1) History of hysterectomy Family History Cancer FHx: gallbladder disease Hypertension Kidney stones Lung disease Seizures Social History Smoking Status: Current Every Day Smoker Alcohol Use: none, other Marital Status: in relationship Housing Status: lives with significant other Current/Historical Medications Scheduled Clonazepam (Klonopin), 1 MG PO BID Cyanocobalamin (Vitamin B-12), 1,000 MCG PO DAILY Fluticasone Prop/Salmeterol (Advair Diskus 100-50 Mcg/Dose), 1 PUFF INH BID Pantoprazole (Protonix), 40 MG PO DAILY Quetiapine Fumarate (Seroquel), 100 MG PO QAM Quetiapine Fumarate Xr (Seroquel Xr Tab), 400 MG PO HS Rivaroxaban (Xarelto), 20 MG PO DAILY Scheduled PRN Albuterol Hfa (Ventolin Hfa), 2 PUFFS INH Q6H PRN for PRN Allergies Coded Allergies: [place] (Unverified Allergy, Severe, BLOATING, 01/25/17) Methylphenidate (Unverified Allergy, Unknown, RASH, SHOCK, 01/25/17) Metoclopramide (Unverified Allergy, Unknown, THROAT CLOSES, 01/25/17) Morphine (Unverified Allergy, Unknown, RASH, SHOCK, 01/25/17) Physical Exam Vital Signs Date Time Temp Pulse Resp B/P (MAP) Pulse Ox O2 Delivery O2 Flow Rate FiO2 01/25/17 22:00 81 18 127/88 95 01/25/17 19:09 36.8 108 18 132/74 94 Room Air Physical Exam Constitutional: Vital signs reviewed. Eyes: Pupils are equal round reactive to light. Conjunctiva are noninjected. ENT: Pharynx is clear without erythema or exudate. Mucous membranes are moist. Neck supple without meningeal signs. Respiratory: Clear to auscultation bilaterally. Breath sounds are equal bilaterally. Cardiovascular: Regular rate and rhythm. No rubs or gallops. GI: Soft, nondistended. Left flank tenderness. No guarding. Bowel sounds are present. Musculoskeletal: No peripheral edema. No lower extremity tenderness. Integumentary: No cyanosis. Neurological: The patient is awake and alert. No focal deficits. Psychiatric: Normal affect. Medical Decision & Procedures ER Provider Diagnostic Interpretation: Radiology results as stated below per my review and the radiologist's interpretation: CT SCAN OF THE ABDOMEN AND PELVIS WITHOUT IV CONTRAST CLINICAL HISTORY: Left flank pain. COMPARISON STUDY: No priors. TECHNIQUE: CT scan of the abdomen and pelvis is performed from the lung bases to the proximal femora. Images are reviewed in the axial, sagittal, and coronal planes. IV contrast was not administered for this examination as per the referring clinician. Automated dose control exposure was utilized. CT DOSE: 669.34 mGy.cm FINDINGS: Lung bases: The heart is normal in size and without pericardial effusion. There is bibasilar atelectasis. The lung bases are otherwise clear. Liver: The unenhanced liver is normal in size, contour, and attenuation. There is mild central intrahepatic biliary ductal dilatation. Gallbladder: Surgically absent noting clips in the gallbladder fossa. Spleen: Normal in size and attenuation. Small splenules are noted in the left upper quadrant. Pancreas: Unremarkable. Adrenal glands: Unremarkable. Kidneys: The unenhanced kidneys are normal in size and without hydronephrosis. There are least 4 nonobstructing left renal calculi at least 8 nonobstructing right renal calculi which measure up to 3 mm. No ureteral calculus is seen. There are small bilateral extrarenal pelvises. A 1.2 cm exophytic cyst arises from the left upper pole. There is a 9 mm slightly hyperdense nodule identified either within or adjacent to the right renal pelvis seen on axial image #189. Abdominal vasculature: The abdominal aorta is normal in course and caliber. Bowel: The small bowel and colon are normal in course and caliber. There are small duodenal diverticula. There is moderate colonic fecal retention. The appendix is well-visualized and normal. Peritoneum: There is no intraperitoneal free air or abdominal ascites. There is a small fat-containing umbilical hernia. Lymphadenopathy: None. Pelvic viscera: The bladder is normal in appearance. The uterus is surgically absent. No adnexal lesion is seen. Fluid in tube coils are present in the pelvis. Postoperative changes identified in the right groin. Skeletal structures: No lytic or blastic lesions are seen. There are postoperative changes from L4 -L5 spinal fusion. Arthritic change is noted in the hips. An 11 mm bone island is noted in the left ilium. IMPRESSION: 1. There are no acute infectious or inflammatory findings in the abdomen or pelvis. 2. There are numerous small bilateral nonobstructing renal calculi. No ureteral stone is seen and there is no hydronephrosis. 3. There is a 9 mm slightly hyperdense nodule identified either within or adjacent to the right renal pelvis (a location within the renal pelvis is favored). The appearance is concerning for a urothelial lesion. Nonemergent/outpatient follow-up with urology is recommended for further assessment. 4. Moderate constipation. Electronically signed by: Jesús Jeffery M.D. 01/25/2017 9:07 PM Dictated Date/Time: 01/25/2017 8:58 PM Laboratory Results Test 01/25/17 00:00 01/25/17 20:06 Urine Color YELLOW Urine Appearance CLEAR (CLEAR) Urine pH 7.5 (4.5-7.5) Urine Specific Echo 1.008 (1.000-1.030) Urine Protein NEG (NEG) Urine Glucose (UA) NEG (NEG) Urine Ketones NEG (NEG) Urine Occult Blood NEG (NEG) Urine Nitrite NEG (NEG) Urine Bilirubin NEG (NEG) Urine Urobilinogen NEG (NEG) Urine Leukocyte Esterase NEG (NEG) Total Bilirubin 0.4 mg/dl (0.2-1) Direct Bilirubin < 0.1 mg/dl (0-0.2) Aspartate Amino Transf (AST/SGOT) 16 U/L (15-37) Alanine Aminotransferase (ALT/SGPT) 23 U/L (12-78) Alkaline Phosphatase 90 U/L (45-117) Ammonia 38.0 umol/L (11-32) Total Protein 7.1 gm/dl (6.4-8.2) Albumin 3.9 gm/dl (3.4-5.0) Laboratory results as reviewed by me. Medications Administered Medications (Trade) Dose Ordered Sig/Jessica Route Start Time Stop Time Status Last Admin Dose Admin Sodium Chloride 1,000 ml @ 999 mls/hr Q1H1M STAT IV 01/25/17 19:34 01/25/17 20:34 DC 01/25/17 20:16 999 MLS/HR Diphenhydramine HCl (Benadryl Inj) 50 mg NOW STAT IV 01/25/17 19:41 01/25/17 19:42 DC 01/25/17 20:17 50 MG Hydromorphone HCl (Dilaudid Inj) 0.5 mg STK-MED ONCE .ROUTE 01/25/17 21:10 01/25/17 21:11 DC 01/25/17 21:13 0.5 MG Prochlorperazine Edisylate (Compazine Inj) 5 mg NOW STAT IV 01/25/17 21:27 01/25/17 21:29 DC 01/25/17 21:34 5 MG ED Course 1926: The patient was evaluated in room B8. A complete history and physical exam was performed. 1933: NSS 1000 ml @ 999 mls/hr IV. 1940: Benadryl Inj 50 mg IV. 2109: Dilaudid Inj 0.5 mg IV. 2114: I reevaluated the patient. She is resting comfortably. I reviewed the test results with her and her family. I discussed the treatment plan with them. They verbalized understanding and agreement. The patient will be discharged home. 2125: The patient requested compazine before discharge. 2126: Compazine Inj 5 mg IV. Medical Decision this is a 46-year-old female who presents with left flank pain. Differential diagnoses considered include ureterolithiasis, renal colic, strain, diverticulitis, UTI. I did perform a limited focused review of portions of the patient's old chart on the electronic medical record. The patient was admitted for a Seroquel and Ativan overdose on December 28. She was transferred to the psychiatric facility at [place]. She had blood work today at [facility] at 1400 which showed a normal chemistry panel and CBC. She also had a negative D- dimer. Her ammonia level was 60. Medication Reconciliation: I attest that I have personally reviewed the patient' s current medication list. Blood Pressure Screening: Patient was found to have an elevated blood pressure and was referred to their primary doctor for recheck and further treatment. I did evaluate the patient as noted above. She is presenting with left flank pain. She is on Xarelto and had a negative d-dimer today. I did not feel PE was likely. She does not complain of chest pain or shortness of breath. Her pain is located in the left flank where she is tender. She does state that she passed a kidney stone earlier today. IV access was established. I did treat the patient with normal saline IV. She was also given Benadryl, Compazine and Dilaudid IV. Urinalysis did not show any evidence of infection or hematuria. I did order and review the patient's blood work as noted in the electronic medical record. LFTs are normal. Ammonia is slightly elevated at 38. It is unclear why she has this minor elevation and I recommended she have it rechecked by her doctor. I did order a CT of the abdomen and pelvis. I did review the images myself as well as the radiology report as described above. There is no evidence of ureterolithiasis. She does have multiple intrarenal stones as well as a nodule in the right kidney. I did discuss the test results with the patient and her material flow engineer's. She was advised to follow up with her doctor as well as a urologist for further care and evaluation. She was discharged in good condition. [place] Drug Monitoring Program Search Results: patient reviewed within database Drug Monitoring Findings: Patient received 60 clonazepam on January 17. Impression Primary Impression: Left flank pain Additional Impression: Increased ammonia level Scribe Attestation The scribe's documentation has been prepared under my direct and personally reviewed by me in its entirety. I confirm that the note above accurately reflects all work, treatment, procedures, and medical decision making performed by me. Departure Information Dispostion Home / Self-Care Referrals No Doctor, Assigned (PCP) Bao Samayoa M.D. Forms HOME CARE DOCUMENTATION FORM, IMPORTANT VISIT INFORMATION Patient Instructions ED Flank Pain Uncertain Cause, My [facility] Additional Instructions You have been examined and treated today on an emergency basis only. This is not a substitute for, or an effort to provide, complete comprehensive medical care. It is impossible to recognize and treat all injuries or illnesses in a single emergency department visit. It is therefore important that you follow up closely with your physician for further evaluation and to have your ammonia rechecked. Also follow up with urology, Dr. Samayoa. There was a 9 mm nodule on your right kidney that needs further evaluation. Call as soon as possible for an appointment. Return for worsening symptoms or if you develop fever or any other concerning symptoms. Problem Qualifiers
== END 2017-01-25 22:01 | disposition home or self-care (01) ==
LOC: C.EDB 19:05
DX: R10.32 Left lower quadrant pain (principal); R10.12 Left upper quadrant pain; R79.89 Other specified abnormal findings of blood chemistry; N28.89 Other specified disorders of kidney and ureter; N20.0 Calculus of kidney; F17.200 Nicotine dependence, unspecified, uncomplicated; K59.00 Constipation, unspecified; Z79.01 Long term (current) use of anticoagulants; Z86.718 Personal history of other venous thrombosis and embolism; Z86.711 Personal history of pulmonary embolism; Z90.710 Acquired absence of both cervix and uterus; Z82.49 Family history of ischemic heart disease and other diseases of the circulatory system; Z84.1 Family history of disorders of kidney and ureter; Z82.0 Family history of epilepsy and other diseases of the nervous system